=== PATIENT | male | born 1965 | race Caucasian/White ===

== ENCOUNTER → 2019-08-24 | Outpatient (CLI) | payer BC ==
[2019-08-24 10:46] LABS: BASO # 0.1 x10^3/uL (0.0-0.2); BASO % 1 % (0-3); EOS # 0.2 x10^3/uL (0.0-0.7); EOS % 1 % (0-3); HEMATOCRIT 41.5 % (39.0-53.0); HEMOGLOBIN 13.6 g/dL (13.0-17.5); LYMPH % 15 % (24-48); MEAN CORPUSCULAR HEMOGLOBIN 29 pg (25-35); MEAN CORPUSCULAR HGB CONC 33 g/dL (31-37); MEAN CORPUSCULAR VOLUME 88 fL (79-100); MONO # 1.3 x10^3/uL (0.0-1.1); MONO % 10 % (0-9); NEUT # 9.7 x10^3uL (1.8-7.7); NEUT % 73 % (31-73); PLATELET COUNT 542 x10^3/uL (140-400); RED BLOOD COUNT 4.71 x10^6/uL (4.30-5.70); WHITE BLOOD COUNT 13.3 x10^3/uL (4.0-11.0)
[2019-08-24 10:57] LABS: ALBUMIN/GLOBULIN RATIO 0.6 (1.0-1.7); GFR 77.3; POTASSIUM 4.2 mmol/L (3.5-5.1); TOTAL BILIRUBIN 0.3 mg/dL (0.2-1.0); TOTAL PROTEIN 7.7 g/dL (6.4-8.2)
[2019-08-24 14:02] LABS: THYROID STIM HORMONE (TSH) 1.509 uIU/mL (0.358-3.740)
--- NOTE | 2019-08-24 17:14 | RAD ---
TESTICULAR/SCROTUM History: Right testicular pain. Comparison: None. Technique: Multiple grayscale, color flow Doppler and Doppler spectral analysis images of the scrotum are obtained. Findings: Right testicle measures 4.5 x 3.1 x 3.2 cm. Right testicle demonstrates normal parenchymal echogenicity. The right epididymis is unremarkable. Left testicle measures 4.0 x 2.9 x 2.6 cm. Left testicle demonstrates normal parenchymal echogenicity. The left epididymis is unremarkable. Small bilateral hydroceles, right greater the left. Scrotal hyperemia or swelling are not seen. Doppler imaging demonstrates normal flow to both testicles, without evidence of torsion. No evidence of inguinal hernia. IMPRESSION: 1. Small bilateral hydroceles, right greater than left. 2. Otherwise, unremarkable testicular ultrasound. Electronically signed by: Ted Greenfield DO (08/24/2019 5:11 PM) [id number]
== END | disposition home or self-care (01) ==
LOC: US 09:28
PROVIDERS: ATTEND Family Medicine
DX: N43.2 Other hydrocele (principal); N50.811 Right testicular pain
CPT/HCPCS: 36415; 76870; 80053; 80061; 84443; 85025; G0103